=== PATIENT | female | born 1940 | race Caucasian/White ===

== ENCOUNTER → 2018-06-03 | Outpatient (CLI) | payer MEDICARE, OTHER ==
[~2018-06-03] MED LIST: CHOL200021 PO; MAGN500C10 PO; METO25TA93 PO; OMEG-23 PO; UBID1CAP94 PO
--- NOTE | 2018-06-04 10:51 | RADIOLOGY IMAGING REPORT ---
[place] [facility] [place] RACHELLE VALDEZ : [id number] MR: [id number] V: [id number] EXAM DATE: ORDERING PHYSICIAN: GABRIELLA GALLAGHER TECHNOLOGIST: Nicole Cardona PROCEDURE:BILATERAL DIAGNOSTIC DIGITAL MAMMOGRAM WITH CAD ASSISTED INTERPRETATION & 3D TOMOSYNTHESIS COMPARISON:Prior mammograms 05/16/17, 02/25/15. INDICATIONS:LEFT BREAST PAIN AND NIPPLE DISCHARGE FINDINGS: A small amount of fibroglandular tissue is seen throughout the breasts. The parenchymal pattern has remained stable allowing for difference in mammographic technique & patient positioning. There is no evidence of malignant appearing mass, malignant appearing calcifications or other secondary sign of malignancy in either breast. Today's Left breast Ultrasound also revealed no abnormality therefore clinical follow-up recommended for patient's Left breast pain and nipple discharge. DIAGNOSTIC CATEGORY 2--BENIGN FINDING. RECOMMENDATIONS: ROUTINE MAMMOGRAM AND CLINICAL EVALUATION. CLINICAL EVALUATION. IMPRESSION: BIRADS 2: Benign finding. No mammographic or sonographic correlate identified for patient's Left breast pain or nipple discharge therefore clinical follow-up recommended. Dictated by: Melissa Shahid M.D. on 06/03/2018 at 18:21 Transcribed by: CHIKI on 06/04/2018 at 10:33 Approved by: Melissa Shahid M.D. on 06/04/2018 at 10:49 [facility]
--- NOTE | 2018-06-04 10:51 | RADIOLOGY IMAGING REPORT ---
FACILITY: [facility] PATIENT NAME: RACHELLE VALDEZ : [id number] MR: [id number] V: [id number] EXAM DATE: ORDERING PHYSICIAN: GABRIELLA GALLAGHER TECHNOLOGIST: Schuyler Loza RDMS, [facility] PROCEDURE:US LEFT BREAST COMPARISON:None. INDICATIONS:Left breast pain and nipple discharge times 1 year. FINDINGS: The periareolar and retroareolar portion of the Left breast was imaged sonographically revealing no sonographic abnormality therefore clinical follow-up recommended for patient's Left breast pain and nipple discharge. DIAGNOSTIC CATEGORY 2--BENIGN FINDING. RECOMMENDATIONS: ROUTINE MAMMOGRAM AND CLINICAL EVALUATION. CLINICAL EVALUATION. IMPRESSION: BIRADS 2: Benign finding. Clinical follow-up recommended for patient's Left breast pain and nipple discharge as described above. Dictated by: Melissa Shahid M.D. on 06/03/2018 at 18:22 Transcribed by: CHIKI on 06/04/2018 at 10:36 Approved by: Melissa Shahid M.D. on 06/04/2018 at 10:49 [facility]
== END ==
LOC: MAMO 02:00
PROVIDERS: ATTEND Nurse Practitioner Psychiatric/Mental Health
DX: N64.52 Nipple discharge (principal)
CPT/HCPCS: 77062; 77066